=== PATIENT | male | born 1960 | race Caucasian/White ===

== ENCOUNTER 2023-07-13 15:44 | Outpatient (CLI) | payer MEDICAID, SELFPAY ==
--- NOTE | 2023-07-13 15:55 | XRR_ITS ---
PROCEDURE INFORMATION: Exam: XR Chest Exam date and time: 07/13/2023 4:02 PM Age: 63 years old Clinical indication: Patient HX: Cough; SOB; Decreased lung sounds on left side; Additional info: R06.9 TECHNIQUE: Imaging protocol: Radiologic exam of the chest. Views: 2 views. COMPARISON: No relevant prior studies available. FINDINGS: Lungs: Mild left lower lung compressive atelectasis. No consolidation. Pleural spaces: Unremarkable. No pleural effusion. No pneumothorax. Heart/Mediastinum: Very large hiatal hernia extending nearly to the left lateral ribcage. No cardiomegaly. Vasculature: Aortic atherosclerotic calcification. Bones/joints: Unremarkable. XR/XR chest 2V* [id number] IMPRESSION: 1. No acute cardiopulmonary findings. 2. Very large hiatal hernia.
== END 2023-07-13 15:45 | disposition home or self-care (01) ==
LOC: RAD 15:49
PROVIDERS: PCP Nurse Practitioner; Visit Provider Nurse Practitioner
DX: R06.89 Other abnormalities of breathing (principal); J06.9 Acute upper respiratory infection, unspecified; K44.9 Diaphragmatic hernia without obstruction or gangrene
CPT/HCPCS: 71046

== ENCOUNTER 2024-09-05 19:34 | Emergency (ER) | payer MEDICAID, SELFPAY ==
[2024-09-05 19:39] VITALS: BP 127/79; PULSE 88; RESP 18; TEMP 37.1; O2SAT 93; BMI 36.5
--- NOTE | 2024-09-05 21:10 | XRR_ITS ---
PROCEDURE INFORMATION: Exam: XR Left Tibia and Fibula Exam date and time: 09/05/2024 9:21 PM Age: 64 years old Clinical indication: Left; Lower back pain post fall; Lac/abrasion/swelling to anterior lt lower leg after blunt trauma TECHNIQUE: Imaging protocol: Radiologic exam of the left tibia and fibula. Views: 2 views. COMPARISON: No relevant prior studies available. FINDINGS: Bones/joints: Normal. No acute displaced fracture or dislocation. Calcaneal spur is present. Soft tissues: Soft tissue edema, most pronounced anteriorly. XR/XR tibia fibula LT 2V [id number] IMPRESSION: No acute findings.
--- NOTE | 2024-09-05 21:10 | XRR_ITS ---
PROCEDURE INFORMATION: Exam: XR Lumbosacral Spine Exam date and time: 09/05/2024 9:21 PM Age: 64 years old Clinical indication: Lumbago; Lower back pain post fall; Lac/abrasion/swelling to anterior lt lower leg after blunt trauma TECHNIQUE: Imaging protocol: Radiologic exam of the lumbosacral spine. Views: 2 or 3 views. COMPARISON: No relevant prior studies available. FINDINGS: Bones/joints: Normal. No acute fracture. Normal alignment. Soft tissues: Unremarkable. XR/XR lumbar spine 2-3V* [id number] IMPRESSION: No acute findings. No compression deformity or traumatic subluxation.
--- NOTE | 2024-09-05 21:25 | W.ED.FALL ---
HPI - Fall General: Chief Complaint: Fall Stated Complaint: fall injury left leg, arm, Time Seen by Provider: 09/05/24 20:42 Source: patient Mode of arrival: wheelchair Limitations: no limitations History of Present Illness: 64yo male presents with family for evaluation of left lower leg and low back pain following a fall that occurred a few hours ago. Patient states that he was standing on a bench feeding his gecko that was in a 20 gallon fish tank when he fell off the bench and pulled the fish tank over on top of him. He states that he landed on his left side and the fish tank pinned his left leg to the carpeted ground. Patient reports pain and swelling of the left lower leg and left low back pain. Patient states his tetanus was in the past few years. He denies any other injury or concern at this time. Associated symptoms-after fall: Denies chest pain Related Data Previous Rx's ?Medication ?Instructions ?Recorded naproxen 500 mg tablet 500 mg PO Q12H PRN pain #20 tabs 09/05/24 tizanidine 2 mg tablet 2 mg PO Q8H PRN muscle spasticity 09/05/24 #20 tabs Allergies Allergy/AdvReac Type Severity Reaction Status Date / Time clindamycin Allergy ALGY-Rash Verified 09/05/24 19:39 Review of Systems Const: Denies: fever(s) or chills Card: Denies: chest pain Resp: Denies: dyspnea Musc: Reports: back pain (Left low back), extremity pain (left lower leg) and extremity swelling (Left lower leg) Physical Exam Const: COMMON NORMALS: no acute distress, patient oriented x3, healthy appearing and alert GENERAL APPEARANCE: cooperative ORIENTATION/CONSCIOUSNESS: Yes awake OTHER: Patient is sitting reclined on the stretcher no acute distress. He is able to give history with no difficulty. He is interactive with exam appropriately. Family is at bedside HENMT: COMMON NORMALS: normocephalic HEAD & SCALP: normocephalic Neck/C-Spine: COMMON NORMALS: full ROM Chest: COMMONS NORMALS: normal inspection of the chest CHEST: Yes Symmetrical chest wall rise Resp: COMMON NORMALS: normal respiratory effort EFFORT & INSPECTION: Yes able to speak in complete sentences Back/Pelvis: LUMBAR SPINE/LOWER BACK: Yes paraspinal muscle tenderness Lumbar paraspinal muscle tenderness: left Extremity: LEFT LOWER EXTREMITY: Yes lower leg (swelling, ecchymosis, 2 small shallow lacerations) Neuro: COMMON NORMALS: patient oriented x3 SENSORIUM/ORIENTATION: Yes alert Course Vital Signs: Vital signs: Vital Signs Temperature 98.7 F 09/05/24 19:39 Pulse Rate 88 09/05/24 19:39 Respiratory Rate 18 09/05/24 19:39 Blood Pressure 127/79 09/05/24 19:39 Pulse Oximetry 93 09/05/24 19:39 MDM - Fall Medical Decision Making 64yo male presents with family for evaluation of left lower leg and low back pain following a fall that occurred a few hours ago. Patient states that he was standing on a bench feeding his gecko that was in a 20 gallon fish tank when he fell off the bench and pulled the fish tank over on top of him. He states that he landed on his left side and the fish tank pinned his left leg to the carpeted ground. Patient reports pain and swelling of the left lower leg and left low back pain. Patient states his tetanus was in the past few years. He denies any other injury or concern at this time. Patient is nontoxic in appearance. Vital signs are stable. No fractures or acute bony abnormalities noted on the x-ray of the left lower leg or x-ray of the lumbar spine. Discussed these findings with patient and family. Patient did receive hydrocodone and ondansetron while in the emergency department. Naproxen and tizanidine prescribed. Discussed with patient application of a cool compress as well as elevation of the left leg to help with swelling and pain. Recommend follow-up with primary care, call Sunday with an update of symptoms and to discuss a recheck. Return precautions provided. Patient and family state understanding and have no further questions or concerns at this time. Medical Records I reviewed the patient's medical records. Lab Data Radiology Impressions Lumbar Spine X-Ray 09/05/24 21:10 IMPRESSION: No acute findings. No compression deformity or traumatic subluxation. Tibia/Fibula X-Ray 09/05/24 21:10 IMPRESSION: No acute findings. All radiology interpretation(s) finalized by discharge Discharge Plan Discharge Patient Disposition: Home Clinical Impression: Fall, Traumatic hematoma of left lower leg, Skin tear of left lower leg without complication, Left low back pain Condition: Stable Prescriptions: New naproxen 500 mg tablet 500 mg PO Q12H PRN (Reason: pain) Qty: 20 0RF tizanidine 2 mg tablet 2 mg PO Q8H PRN (Reason: muscle spasticity) Qty: 20 0RF Discharge Orders: Discharge ED (Routine); Ordered 09/05/24 Ordered By: Santhosh Kraft Referrals: Candace Estevez, [facility] [Primary Care Provider, [facility]] Discharge Diet: Usual diet Discharge Activity: Increase activity as tolerated Patient Instructions: Acute Low Back Pain (ED), Hematoma (ED), Pain Management Activity Restrictions/Additional Instructions: No fractures or acute bony abnormalities noted on the x-rays today The skin tears will likely heal without any complication High-dose naproxen and tizanidine have been sent to the pharmacy to help with pain. Please do not drive or operate heavy machinery while taking tizanidine Elevate and apply cool compress to the left lower leg to help with pain and swelling Follow-up with primary care, call Sunday with an update of symptoms and to discuss recheck Return to the emergency department if any further injury, rapid worsening symptoms, and as needed Print Language: Malay Coding Level of Care Code ED Beater Room Supervisor for Farhana Connolly
[2024-09-05] MEDS: HYDROcodone-acetaminophen 5-325 mg Tablet 1 TAB PO (23:20)
[2024-09-05] MEDS: ondansetron hcl ODT 4 mg Tab PO (23:20)
== END 2024-09-05 23:21 | disposition home or self-care (01) ==
PROVIDERS: Emergency Provider Nurse Practitioner; PCP Nurse Practitioner
DX: S80.12XA Contusion of left lower leg, initial encounter (principal); M54.50 Low back pain, unspecified; S81.812A Laceration without foreign body, left lower leg, initial encounter; W19.XXXA Unspecified fall, initial encounter
CPT/HCPCS: 72100; 73590; 99284; J9999; Q0162